=== PATIENT | female | born 1970 | race Caucasian/White ===

== ENCOUNTER 2023-04-14 09:51 | Emergency (ER) | payer OTHER, SELFPAY ==
--- NOTE | ~2023-04-14 | XR_ITS ---
EXAMINATION: XR facial bones min 3V DATE: 04/14/2023 10:43 INDICATION: Face injury and pain. TECHNIQUE: 6 views of the facial bones were obtained. COMPARISON: None. FINDINGS: There is rightward deviation of the nasal septum. No fracture. IMPRESSION: 1. No fracture. Reviewed, dictated and finalized at location B. IMPRESSION: 1. No fracture.
--- NOTE | ~2023-04-14 | XR_ITS ---
EXAMINATION: XR ankle LT min 3V, XR foot LT min 3V DATE: 04/14/2023 10:43 INDICATION: Pain and swelling at the lateral left foot and ankle post fall TECHNIQUE: 1. Anteroposterior, mortise, additional oblique and lateral view of the left ankle were obtained. 2. Dorsoplantar, two oblique and lateral views of the left foot were obtained. COMPARISON: None. FINDINGS: Alignment of the left foot and ankle is normal. 2 mm distraction of a very small flake-like cortical avulsion fracture arising from the lateral margin of the anterior process of the calcaneus. No other fractures identified. Mild polyarticular osteoarthritis at the first metatarsophalangeal, tarsal meta tarsal and interphalangeal joints. Small Achilles calcaneal spur. No ankle joint effusion. There is s oft tissue swelling at the lateral aspect of the mid and hindfoot. IMPRESSION: 1. Very small flake-like avulsion fracture at the lateral margin of the anterior process of the calca neus likely involving the footplate of the bifurcate ligament. Reviewed, dictated and finalized at location A. IMPRESSION: 1. Very small flake-like avulsion fracture at the lateral margin of the anterio r process of the calcaneus likely involving the footplate of the bifurcate liga ment.
--- NOTE | 2023-04-14 09:53 | ED.LOWEXIN ---
HPI - Extremity Injury (Lower) General Chief Complaint: Wound/Laceration Stated Complaint: Right Knee and Foot Injury Source: patient and RN notes reviewed Mode of arrival: ambulatory Limitations: no limitations History of Present Illness HPI Narrative: Patient is a 52-year-old female who presents to the [facility] complaints of ground level fall that occurred yesterday morning. Patient states her foot got caught between the porch in the concrete slab causing her to forward. Patient states that she landed on her left ankle / foot on the concrete and hit her face on the grass in the yard. She did not lose consciousness. Patient presents with left foot / ankle pain, an abrasion to the left knee, and right-sided facial swelling and tenderness. Upon assessment, patient has notable swelling to the lateral aspect of the left foot and cornell, an abrasion to the left knee that patient states is not causing her pain at this time, and right sided facial swelling and abrasion near the orbital ring/cheekbone. She denies numbness. She is neurovascularly intact. She is alert and oriented x 4; speech is clear. There are no obvious neurological deficits. Related Data Home Medications Medication Instructions Recorded Confirmed atenolol 25 mg tablet 25 mg PO BID 04/14/23 04/14/23 hydroxyzine HCl 25 mg tablet 25 mg PO BID 04/14/23 04/14/23 levothyroxine 75 mcg tablet 75 mcg PO DAILY 04/14/23 04/14/23 pantoprazole 40 mg tablet,delayed 40 mg PO DAILY 04/14/23 04/14/23 release paroxetine HCl 20 mg tablet 20 mg PO DAILY 04/14/23 04/14/23 Allergies Allergy/AdvReac Type Severity Reaction Status Date / Time No Known Allergies Allergy Unverified 04/14/23 10:12 Review of Systems Review of Systems: CONSTITUTIONAL: Denies fever, chills, or sweats. EYES: Denies visual changes, redness, or discharge. ENT: Denies otalgia and sore throat HEAD: Right sided facial tenderness, swelling, and abrasion. CARDIOVASCULAR: Denies chest pain, palpitations, or edema. RESPIRATORY: Denies cough or dyspnea. GASTROINTESTINAL: Denies abdominal pain, nausea, vomiting, or diarrhea. GENITOURINARY: Denies dysuria or hematuria. SKIN: Denies rash or itching. Abrasion to right side of face and left knee. MUSCULOSKELETAL: Denies back pain and neck pain. Reports left ankle and foot pain and swelling. NEUROLOGIC: Denies headache, numbness, or weakness. Pertinent positives per HPI. PMFSH Comments At the time of my signature, I reviewed and agree with the nursing past medical, surgical, social, and family history. There is no relevant family history pertinent to the patient complaint. Exam Narrative: GENERAL: This is a well-nourished, well-developed patient, in no apparent distress. HEAD: normocephalic, atraumatic. EYES: PERRL. Sclera clear/white. Vision is grossly intact. EARS: External ears normal. Hearing grossly intact. NOSE: External nose normal with no obvious nasal discharge, nares without redness, no rhinorrhea. THROAT: Mucous membranes moist, posterior pharynx clear. NECK: Neck supple, non-tender without lymphadenopathy, masses or thyromegaly. CARDIOVASCULAR: Regular rate and rhythm without murmurs, gallops, or rubs. RESPIRATORY: Clear to auscultation. Breath sounds equal bilaterally. No wheezes, rales, or rhonchi. GASTROINTESTINAL: Abdomen soft, non-tender, nondistended. Bowel sounds are active. No hepato-splenomegaly, or palpable masses. No guarding. SKIN: warm, intact with no suspicious lesions or rash, good texture and turgor. Abrasion to right side of face along the orbital ring near cheekbone. Abrasion to left knee. NEURO: awake, alert, and oriented to person, place and time. There were no obvious focal neurologic abnormalities. EXTREMITIES: Left ankle with significant swelling along the lateral aspect that extends down to the foot. + tenderness. Decreased ROM. Sensation intact. Cap refill normal. Patient is neurovascularly intact distal to the injury. BACK: Nontender
[2023-04-14 10:02] VITALS: BP 142/93; PULSE 74; RESP 16; TEMP 36.3; O2SAT 100
== END 2023-04-14 11:30 | disposition home or self-care (01) ==
PROVIDERS: Emergency Provider Nurse Practitioner
DX: S92.035A Nondisplaced avulsion fracture of tuberosity of left calcaneus, initial encounter for closed fracture (principal); S80.212A Abrasion, left knee, initial encounter; S00.83XA Contusion of other part of head, initial encounter; W19.XXXA Unspecified fall, initial encounter
CPT/HCPCS: 29515; 70150; 73610; 73630; 99204; G0463